=== PATIENT | female | born 1955 | race Native Hawaiian/Other Pacific Islander ===

== ENCOUNTER 2020-07-12 17:34 | Outpatient (CLI) | payer OTHER ==
[2020-07-12 19:42] LABS: PLATELET COUNT 299 K/uL (152-353)
[2020-07-12 20:17] LABS: POTASSIUM 4.7 mmol/L (3.6-5.2)
== END 2020-07-12 21:39 | disposition home or self-care (01) ==
LOC: LAB 17:34
PROVIDERS: ATTEND Nurse Practitioner Family
DX: Z00.00 Encounter for general adult medical examination without abnormal findings (principal); Z79.899 Other long term (current) drug therapy; E03.8 Other specified hypothyroidism; I10 Essential (primary) hypertension; E78.49 Other hyperlipidemia; E11.9 Type 2 diabetes mellitus without complications
CPT/HCPCS: 80053; 80061; 82306; 82607; 83036; 84439; 84443; 85027